=== PATIENT | female | born 1945 | race Caucasian/White ===

== ENCOUNTER → 2016-12-10 | Outpatient (CLI) | payer MEDICARE, OTHER ==
[~2016-12-10] MED LIST: ASPIRIN81 MG PO; CALCIUM + D SO1 EACH PO; CETIRIZINE HCL10 MG PO; FLEXERIL 10 MG10 MG PO; FUROSEMIDE40 MG PO; GABAPENTIN100 MG PO; JANUVIA50 MG PO; KLONOPIN TAB 00.5 MG PO; LEVOTHYROXINE88 MCG PO; LORTAB 5-325 M1 EACH PO; MONTELUKAST SOD10 MG PO; NORCO 5-325 TA1 EACH PO; OMEPRAZOLE40 MG PO; PAROXETINE HCL40 MG PO; SIMVASTATIN20 MG PO; TENORMIN 50 MG50 MG PO; ZETIA10 MG PO
== END ==
LOC: LAB 14:13
DX: Z01.89 Encounter for other specified special examinations (principal); C83.39 Diffuse large B-cell lymphoma, extranodal and solid organ sites; R59.9 Enlarged lymph nodes, unspecified
CPT/HCPCS: 36415; 82565; 84520

== ENCOUNTER → 2016-12-11 | Outpatient (CLI) | payer MEDICARE, OTHER | LOC: CT 11-07 08:00 → OPSV 10:02 → CT 10:02 | DX: C83.39 Diffuse large B-cell lymphoma, extranodal and solid organ sites (principal); Z01.89 Encounter for other specified special examinations; R59.9 Enlarged lymph nodes, unspecified; E86.0 Dehydration | CPT/HCPCS: 96360; J1642; J7030; J7050; Q9962 ==

== ENCOUNTER → 2021-07-05 | Outpatient (CLI) | payer MEDICARE, OTHER | LOC: HEART 5 14:41 | DX: J84.81 Lymphangioleiomyomatosis (principal); R91.8 Other nonspecific abnormal finding of lung field | CPT/HCPCS: 71046; 94010; 94729 ==